=== PATIENT | female | born 2000 | race Hispanic/Latino ===

== ENCOUNTER 2024-06-21 12:52 | Outpatient (CLI) | payer OTHER, SELFPAY ==
--- NOTE | ~2024-06-21 | US_ITS ---
US transvaginal Ordering provider: Jackeline Denny, JAK History: . IUD CHECK . Comparison: None. Technique: Transabdominal and endovaginal ultrasound of the pelvis (Doppler ultrasound interrogation techniques used as needed for this exam.) FINDINGS: CERVIX: Normal. UTERUS: Measures 9.5x 4x 4 cm in length which is within normal limits and is anteverted. No myometri al masses. ENDOMETRIUM: Normal in thickness measuring 6 mm. IUD is seen in the lower segment. No endometrial mas ses, cysts or fluid. Prominent vessels on this side of the uterus suggestive of pelvic congestion syn drome. CUL DE SAC: No free fluid. RIGHT OVARY: Normal in size measuring 3.6x 2.8x 2.4 cm. Normal echotexture. Doppler vascular flow pre sent. Cyst is seen measuring 2.4 x 2.6 x 2.3 cm. Trace of fluid is seen adjacent to the liver. LEFT OVARY: Normal in size measuring 2.3x 1.2x 1.1 cm. Normal echotexture. Doppler vascular flow pres ent. ADNEXA: Normal. No mass. IMPRESSION: IUD is seen in the lower segment of the uterus. Pelvic congestion syndrome. Right ovarian cyst. Minim al fluid adjacent to the right of the. Otherwise, normal pelvic ultrasound. Reviewed, dictated and finalized at [facility]. IMPRESSION: IUD is seen in the lower segment of the uterus. Pelvic congestion syndrome. Rig ht ovarian cyst. Minimal fluid adjacent to the right of the. Otherwise, normal pelvic ultrasound.
== END 2024-06-21 12:53 | disposition home or self-care (01) ==
PROVIDERS: PCP Physician Assistant; Visit Provider Physician Assistant
DX: N94.89 Other specified conditions associated with female genital organs and menstrual cycle (principal); N83.201 Unspecified ovarian cyst, right side; Z30.431 Encounter for routine checking of intrauterine contraceptive device
CPT/HCPCS: 76830

== ENCOUNTER 2024-08-13 22:34 | Emergency (ER) | payer OTHER, SELFPAY ==
--- NOTE | ~2024-08-13 | CT_ITS ---
EXAMINATION: CT abdomen pelvis w con DATE: 08/14/2024 00:55 INDICATION: Right upper abdominal pain. Constipation. TECHNIQUE: Computed tomography (CT) of the abdomen and pelvis was performed with 100 CC Omnipaque 350 intravenous contrast. Automated exposure control and iterative reconstruction technique were employe d. Exam dose: 251.11 mGy-cm total exam DLP. COMPARISON: None. FINDINGS: The lung bases are clear. Normal heart size. No pericardial or pleural effusion. Status post cholecystectomy. No bile duct or pancreatic duct dilatation. No hepatic or pancreatic space-occupying mass lesion. Normal splenic size. Normal morphology of the adrenal glands. No renal mass lesion or urinary tract calculus or hydroureteronephrosis is evident. The urinary bladd er is unremarkable. The uterus appears normal. Involuting approximately 12.5 x 15 mm right ovarian corpus luteum cyst. Normal appendix. There is a prominent fecal material within the colon but no bowel obstruction or bowel wall thickenin g, pneumatosis or intraperitoneal free air. Normal caliber of the abdominal aorta. No intraperitoneal or retroperitoneal or pelvic mass lesion or adenopathy or ascites. Small fat-containing umbilical hernia. Included skeletal structures are unremarkable. IMPRESSION: Involuting approximately 12.5 x 15 mm right ovarian corpus luteum cyst Normal appendix Status post cholecystectomy Reviewed, dictated and finalized at [facility]. Reviewed, dictated and finalized at [facility]. H [employer]
[2024-08-13 22:38] VITALS: BP 129/79; PULSE 76; RESP 20; TEMP 35.9; O2SAT 100
--- NOTE | 2024-08-13 22:56 | ED_ITS ---
HPI - Abdominal Pain General Chief Complaint: Abdominal Pain Stated Complaint: abdominal pain Time Seen by Provider: 08/13/24 22:45 Source: patient Mode of arrival: ambulatory Limitations: no limitations History of Present Illness HPI narrative: Patient is a 24-year-old female who presents the ED with report of right-sided abdominal pain. Patient reports having pain since yesterday. Pain has been near constant. Tried taking Tylenol at home without improvement. Reports pain feels similar to what she experienced when she had her gallbladder removed. Denies nausea, vomiting, diarrhea. Does report sensation of constipation feeling as though she needs to have a bowel movement. Denies urinary complaints. Denies fevers. Related Data Allergies Allergy/AdvReac Type Severity Reaction Status Date / Time No Known Allergies Allergy Verified 08/14/24 00:05 Review of Systems Review of Systems: All systems reviewed & are unremarkable except as noted in HPI. All systems reviewed & are unremarkable except as noted in HPI and below Exam Narrative: GENERAL: Well appearing, well-nourished, non-toxic, in no acute distress. HEAD: Normocephalic, atraumatic. RESPIRATORY: Airway patent, respirations nonlabored. Clear to auscultation bilaterally, no rales, rhonchi, wheezing. CARDIOVASCULAR: Regular rate and rhythm without murmurs, rubs, or gallops. ABDOMINAL: Soft, mild tenderness to palpation in epigastric region/RUQ, no rebound tenderness. Nondistended. Normoactive BS. MUSCULOSKELETAL: Moves all extremities. No gross deformities. SKIN: Warm, dry, normal color. NEURO: A&O X3. Speech clear. PSYCHIATRIC: Appropriate mood and affect. Normal interaction. Course Vital Signs Vital signs: Vital Signs Temperature 96.7 F L 08/13/24 22:38 Pulse Rate 76 08/13/24 22:38 Respiratory Rate 20 08/13/24 22:38 Blood Pressure 129/79 08/13/24 22:38 Pulse Oximetry 100 08/13/24 22:38 Oxygen Delivery Room Air 08/13/24 22:38 Temperature 96.7 F L 08/13/24 22:38 Pulse Rate 77 08/14/24 01:43 Respiratory Rate 17 08/14/24 01:43 Blood Pressure 113/78 08/14/24 01:43 Pulse Oximetry 100 08/14/24 01:43 Oxygen Delivery Room Air 08/13/24 22:38 MDM - Abdominal Pain MDM Narrative Medical decision making narrative: Patient presented to ED with right upper abdominal pain, sensation of constipation. Vital signs are stable upon arrival. Patient is in no acute d istress. Cbc with mother count 10.7. CMP is unremarkable. Normal LFTs and lipase. UA is clear. Urine is negative. CT scan of abdomen/pelvis was obtained and unremarkable. No significant abnormalities. Patient resting comfortably on reeval. Patient felt improved after Pepcid in the ED. She declined morphine. Possibility of gastroenteritis/gastritis/musculoskeletal etiology/constipation/gas pains. Personal review of CT images did show fairly significant stool burden. Discussed constipation management with patient. She does report she frequently suffers from this. Low suspicion for pulmonary etiology. Patient denying any respiratory symptoms, shortness breath, cough. Denies pleuritic pain. No tachycardia, tachypnea, hypoxia. PERC negative. She feels reassured by a workup. Feel she is safe for discharge home with close outpatient follow-up. Will discharge with Bentyl for home use. Recommended that patient have follow-up with PCP for further evaluation. Given return precautions. She agrees with plan. Discharged in stable condition Differential Diagnosis Differential diagnosis: Likely acute appendicitis, calculus of kidney, constipation, gastroenteritis, pancreatitis, small bowel obstruction and other (gastritis, gerd) Medical Records Attestation: I reviewed the patient's medical records. Lab Data Attestation: I reviewed the patient's lab results. 08/13/24 23:12 08/13/24 23:12 Labs: Lab Results 08/13/24 08/13/24 Range/Units 22:46 23:12 WBC 10.7 H (4.5-10.0) K/mm3 RBC 4.42 (4.2-5.4) M/mm3 Hgb 14.2 (12.0-15.0) g/dL Hct 42.0 (37.0-47.0) % MCV 95.0 (80-100) fl MCH 32.1 (26-34) pg MCHC 33.8 (32-36) g/dl RDW 12.5 (11.5-14.5) % Plt Count 301 (150-375) k/mm3 MPV 10.5 H (7.4-10.4) fl Immature Gran % (Auto) 0.2 (0-0.5) % Neut % (Auto) 52.8 (45.5-73.1) % Lymph % (Auto) 34.5 (18.3-44.2) % [place] % (Auto) 9.1 H (2.6-8.5) % Eos % (Auto) 2.8 (0-4.4) % Baso % (Auto) 0.6 (0.2-1.2) % Lymph # (Auto) 3.70 H (0.9-3.2) K/mm3 [place] # (Auto) 1.0 H (0.1-0.6) K/mm3 Eos # (Auto) 0.3 (0-0.3) K/mm3 Baso # (Auto) 0.1 (0.0-0.1) K/mm3 Abs Immat Gran (auto) 0.02 (0.00-0.031) K/mm3 Absolute Neuts (auto) 5.7 (1.3-6.7) K/mm3 Absolute Nucleated RBC 0.000 (0.0-0.012) K/mm3 Nucleated RBC % 0.0 (0.0-0.2) % Sodium 136 L (137-145) mmol/L Potassium 3.6 (3.4-5.0) mmol/L Chloride 102 (98-107) mmol/L Carbon Dioxide 26 (22-30) mmol/L Anion Gap 8 (4-12) mmol/L BUN 23 H (7-17) mg/dL Creatinine 0.50 L (0.7-1.0) mg/dL Estim Creat Clear Calc 108 ml/min Estimated GFR > 60 (59 - ) Glucose 97 (65-110) mg/dL Calcium 9.0 (8.4-10.2) mg/dL Total Bilirubin 0.4 (0.2-1.3) mg/dL AST 26 (14-36) U/L ALT 12 (6-35) U/L Alkaline Phosphatase 48 (38-126) U/L Total Protein 8.0 (6.3-8.2) g/dL Albumin 4.7 (3.5-5.1) g/dL Lipase 84 (23-300) U/L Urine Color Yellow (Yellow) Urine Appearance Clear (Clear) Urine pH 6.5 (5.0-9.0) Ur Specific Reading 1.021 (1.001-1.035) Urine Protein Negative (Negative) mg/dL Urine Glucose (UA) Negative (Negative) mg/dL Urine Ketones Negative (Negative) mg/dL Ur Blood (Man) Negative (Negative) Urine Nitrate Negative (Negative) Urine Bilirubin Negative (Negative) Urine Urobilinogen 1.0 (<2.0) mg/dL Leukocyte Esterase Rfl Negative (Negative) APRIL/UL POC Urine HCG, Qual Negative (Negative) Imaging Data Attestation: I personally reviewed and interpreted this imaging study as follows: Radiologist's impression: STAT RAD CT abd/pelvis: No acute finding. Discharge Plan Discharge Clinical Impression: Right upper quadrant abdominal pain Constipation Qualifiers: Constipation type: unspecified constipation type Qualified Code(s): K59.00 - Constipation, unspecified Patient Disposition: Home, Self-Care Condition: Stable Instructions: Antibiotic Form, Constipation (ED), High Fiber Diet (ED), Abdominal Pain (ED) Additional Instructions: Recommend Bentyl and/or Tylenol as needed for further abdominal discomfort. Increase fluid intake. Recommend electrolyte rich fluids, gatorade, pedialyte, body armour. Recommend clear liquids or bland diet until symptoms improve, such as bananas, rice, applesauce, toast, or crackers. Recommend high-fiber diet, drinking plenty of fluids, MiraLax and/or Dulcolax as needed for constipation. Follow up with your primary care doctor for further evaluation. Return to the ED if you experience worsening or severe symptoms, unable to keep down food or drink, severe pain, fevers, shortness of breath, rectal bleeding, vomiting blood, or any other symptoms of concern. Prescriptions: New dicyclomine 20 mg tablet 20 mg PO TID PRN (Reason: Abdominal Discomfort) Qty: 15 0RF Follow-up/Referrals: Eduin,JAK Coronel [Primary Care Provider] - Time of Disposition: 02:32
[2024-08-13 23:18] LABS: Basophils Absolute Auto 0.1 K/mm3 (0.0-0.1); Basophils Percent Auto 0.6 % (0.2-1.2); Eosinophils Absolute Auto 0.3 K/mm3 (0-0.3); Eosinophils Percent Auto 2.8 % (0-4.4); Hemoglobin 14.2 g/dL (12.0-15.0); Immature Granulocyte Absolute 0.02 K/mm3 (0.00-0.031); Immature Granulocyte Percent A 0.2 % (0-0.5); Lymphocytes Percent Auto 34.5 % (18.3-44.2); Mean Corpuscular HGB Conc 33.8 g/dl (32-36); Mean Corpuscular Hemoglobin 32.1 pg (26-34); Mean Platelet Volume 10.5 fl (7.4-10.4); Monocytes Percent Auto 9.1 % (2.6-8.5); Neutrophils Absolute Auto 5.7 K/mm3 (1.3-6.7); Neutrophils Percent Auto 52.8 % (45.5-73.1); Platelet Count Result 301 k/mm3 (150-375); Red Blood Count 4.42 M/mm3 (4.2-5.4); Red Cell Distribution Width 12.5 % (11.5-14.5); White Blood Count 10.7 K/mm3 (4.5-10.0)
[2024-08-13 23:19] LABS: Add Urine Microscopic? NO; Appearance Urine Clear (Clear); Bilirubin Urine Negative (Negative); Blood Urine Negative (Negative); Color Urine Yellow (Yellow); Glucose Urine UA Negative (Negative); Ketones Urine Negative (Negative); Leukocyte Esterase Ur Negative LEU/UL (Negative); Nitrate Urine Negative (Negative); Protein Urine Negative (Negative); Specific Grav Ur 1.021 (1.001-1.035); pH Urine 6.5 (5.0-9.0)
[2024-08-13 23:25] LABS: BEDSIDEPREGUCG Negative (Negative)
[2024-08-13 23:39] LABS: Alanine Aminotransferase 12 U/L (6-35); Albumin Level 4.7 g/dL (3.5-5.1); Alkaline Phosphatase 48 U/L (38-126); Anion Gap 8 mmol/L (4-12); Aspartate Amino Transferase 26 U/L (14-36); Bilirubin,Total 0.4 mg/dL (0.2-1.3); Blood Urea Nitrogen 23 mg/dL (7-17); Carbon Dioxide 26 mmol/L (22-30); Chloride 102 mmol/L (98-107); Estimated CRCL calculation 108 ml/min; Estimated Glomerular Filt Rate > 60; Glucose 97 mg/dL (65-110); Lipase 84 U/L (23-300); Potassium 3.6 mmol/L (3.4-5.0); Sodium 136 mmol/L (137-145)
[2024-08-14] VITALS (8 sets, daily range): BP systolic 92–113; BP diastolic 71–84; PULSE 77; RESP 17; O2SAT 99–100
[2024-08-14] MEDS: FAMOTIDINE 20 MG/2 ML VIAL IV PUSH
[2024-08-14] MEDS: Please add drug allergy info to patient profile. 1 EACH XX (00:03)
[2024-08-14] MEDS: KETOROLAC 30 MG/ML VIAL (*BKC) IV PUSH (02:49)
[2024-08-14] MEDS: DICYCLOMINE HCL 10 MG CAPSULE 20 MG PO (02:49)
== END 2024-08-14 03:24 | disposition home or self-care (01) ==
PROVIDERS: Emergency Provider Physician Assistant; PCP Physician Assistant
DX: R10.11 Right upper quadrant pain (principal); K59.00 Constipation, unspecified
CPT/HCPCS: 36415; 74177; 80053; 81003; 81025; 83690; 85025; 96374; 96375; 99284; A9270; J1885; Q9967